=== PATIENT | male | born 2000 | race African-American/Black ===

== ENCOUNTER 2022-09-15 21:50 | Emergency (ER) | payer OTHER, SELFPAY ==
--- NOTE | 2022-09-15 21:55 | ED_ITS ---
HPI - Psych General Chief Complaint: Psychiatric Symptoms Stated Complaint: crisis, per ems Time Seen by Provider: 09/15/22 21:54 Source: patient Mode of arrival: EMS Limitations: no limitations History of Present Illness HPI Narrative: Patient's history of depression parents few years ago does not have any pl [place] to live came from [place] to live with his cousin sister stayed more than 10 days now he cannot stay in her house patient denied any SI but feels hopeless and depressed came here to live to find a job and a place but her cousin sister called the EMS as she did text saying that he is suicidal but patient denied no substance abuse no alcohol abuse Related Data Home Medications Medication Instructions Recorded Confirmed No Known Home Meds 09/15/22 09/15/22 Allergies Allergy/AdvReac Type Severity Reaction Status Date / Time No Known Allergies Allergy Verified 09/15/22 21:55 Review of Systems Review of Systems: Yes all other systems are reviewed and are negative [facility] Social History Social History Advance Directives: No Advance Directives Information Provided: No Healthcare Proxy: No Guardian: No Physical Exam Vital Signs: Vital Signs: Last Vital Signs Temp 99.3 F 09/16/22 03:53 Pulse 90 09/16/22 03:53 Resp 17 09/16/22 03:53 BP 126/59 L 09/16/22 03:53 Pulse Ox 99 09/16/22 03:53 O2 Del Method Room Air 09/16/22 03:53 BMI result Body Mass Index 27.8 Appearance: Alert. Oriented X3. No acute distress. Eyes: PERRLA, ENT: Pharynx normal. Oral Mucosa moist Neck: Normal inspection. Neck supple. CVS: Normal heart rate and rhythm. Pulses normal. Respiratory: No respiratory distress. Equal air entry bilateral, Abdomen: Soft and nontender. Bowel sounds are present, Skin: Skin warm and dry. Normal skin color. Normal skin turgor. Extremities: No lower extremity edema. No calf tenderness psych: Depressed denied any SI or HI no hallucination or delusion Neuro: Oriented X 3. No motor deficit. No sensory deficit.No cerebellar signs , cranial nerves II-XII intact Medications Administered Discontinued Medications Generic Name Dose Route Start Last Admin Trade Name Freq PRN Reason Stop Dose Admin Loperamide HCl 4 mg 09/16/22 03:49 09/16/22 03:58 Loperamide Hcl 2 Mg Capsule PO 09/16/22 03:50 4 mg ONCE ONE Administration Medical Decision Making Medical Decision Making MDM Narrative: Patient depression currently not suicidal but had thoughts in the past without any plan seen by care team will plan to place him in respite Lab Data MDM Lab Attestation statement: I reviewed the patient's lab results. 09/15/22 22:24 09/15/22 22:24 Labs: Lab Results 09/15/22 09/15/22 09/15/22 Range/Units 22:24 22:24 22:24 WBC 15.8 H (4.8-10.8) X10*3/uL RBC 5.44 (4.60-5.80) X10*6/uL Hgb 16.2 (14.0-18.0) g/dl Hct 48.3 (42.0-52.0) % MCV 88.8 (80.0-98.0) fL MCH 29.8 (27.0-33.0) pg MCHC 33.5 (31.0-36.0) g/dl RDW 12.4 (11.0-16.0) % Plt Count 334 (160-400) X10*3/uL MPV 10.4 (9.4-12.4) fL Immature Gran % (Auto) 0.3 (0.0-0.4) % Neut % (Auto) 79.8 H (45-73) % Lymph % (Auto) 11.4 L (20-40) % [place] % (Auto) 8.0 (2-11) % Eos % (Auto) 0.2 (0-4) % Baso % (Auto) 0.3 (0-2) % Lymph # (Auto) 1.8 (1.2-4.9) X10*3/uL [place] # (Auto) 1.3 H (0.1-1.2) X10*3/uL Eos # (Auto) 0.0 (0.0-0.4) X10*3/uL Baso # (Auto) 0.0 (0.0-0.2) X10*3/uL Abs Immat Gran (auto) 0.04 H (0.00-0.03) X10*3/uL Absolute Neuts (auto) 12.6 H (2.0-8.3) x10*3/uL Absolute Nucleated RBC 0.000 (0.0-0.012) X10*3/uL Nucleated RBC % (auto) 0.0 (0.0-0.2) /100WBC Sodium 139 (135-145) mmol/L Potassium 3.3 (3.3-5.1) mmol/L Chloride 102 (96-108) mmol/L Carbon Dioxide 26 (22-29) mmol/L Anion Gap 14 (12-20) BUN 7 L (9-16) mg/dL Creatinine 1.00 (0.5-1.4) mg/dL Estim Creat Clear Calc 129.3 Estimated GFR > 60 Random Glucose 102 (60-115) mg/dL Calcium 10.0 (8.4-10.2) mg/dL Total Bilirubin 0.6 (0.0-1.0) mg/dL AST 17 (5-37) U/L ALT 20 (0-40) U/L Alkaline Phosphatase 138 H (39-117) U/L Total Protein 8.1 H (6.5-8.0) g/dL Albumin 4.5 (3.5-5.0) g/dL Urine Opiates Screen (Not Detect) Urine Fentanyl Screen (Not Detect) Ur Barbiturates Screen (Not Detect) Ur Phencyclidine Scrn (Not Detect) Ur Amphetamines Screen (Not Detect) U Benzodiazepines Scrn (Not Detect) Urine Cocaine Screen (Not Detect) U Marijuana (THC) Screen (Not Detect) Ethyl Alcohol < 10 mg/dL COVID-19 (ADRIAN) (Negative) COVID-19 Clin Com 09/15/22 09/16/22 Range/Units 22:24 03:50 WBC (4.8-10.8) X10*3/uL RBC (4.60-5.80) X10*6/uL Hgb (14.0-18.0) g/dl Hct (42.0-52.0) % MCV (80.0-98.0) fL MCH (27.0-33.0) pg MCHC (31.0-36.0) g/dl RDW (11.0-16.0) % Plt Count (160-400) X10*3/uL MPV (9.4-12.4) fL Immature Gran % (Auto) (0.0-0.4) % Neut % (Auto) (45-73) % Lymph % (Auto) (20-40) % [place] % (Auto) (2-11) % Eos % (Auto) (0-4) % Baso % (Auto) (0-2) % Lymph # (Auto) (1.2-4.9) X10*3/uL [place] # (Auto) (0.1-1.2) X10*3/uL Eos # (Auto) (0.0-0.4) X10*3/uL Baso # (Auto) (0.0-0.2) X10*3/uL Abs Immat Gran (auto) (0.00-0.03) X10*3/uL Absolute Neuts (auto) (2.0-8.3) x10*3/uL Absolute Nucleated RBC (0.0-0.012) X10*3/uL Nucleated RBC % (auto) (0.0-0.2) /100WBC Sodium (135-145) mmol/L Potassium (3.3-5.1) mmol/L Chloride (96-108) mmol/L Carbon Dioxide (22-29) mmol/L Anion Gap (12-20) BUN (9-16) mg/dL Creatinine (0.5-1.4) mg/dL Estim Creat Clear Calc Estimated GFR Random Glucose (60-115) mg/dL Calcium (8.4-10.2) mg/dL Total Bilirubin (0.0-1.0) mg/dL AST (5-37) U/L ALT (0-40) U/L Alkaline Phosphatase (39-117) U/L Total Protein (6.5-8.0) g/dL Albumin (3.5-5.0) g/dL Urine Opiates Screen Not Detected (Not Detect) Urine Fentanyl Screen Not Detected (Not Detect) Ur Barbiturates Screen Not Detected (Not Detect) Ur Phencyclidine Scrn Not Detected (Not Detect) Ur Amphetamines Screen Not Detected (Not Detect) U Benzodiazepines Scrn Not Detected (Not Detect) Urine Cocaine Screen Not Detected (Not Detect) U Marijuana (THC) Screen POSITIVE H (Not Detect) Ethyl Alcohol mg/dL COVID-19 (ADRIAN) Negative (Negative) COVID-19 Clin Com See Note Discharge Plan Discharge Clinical Impression: Suicidal ideation, Depression Patient Disposition: Still a Patient Prescriptions: No Action No Known Home Meds Interventions: Dickinson-Suicide Risk Severity Scale Last Done: 09/16/22 00:27
[2022-09-15 21:57] VITALS: BP 152/86; PULSE 106; RESP 17; TEMP 37.1; O2SAT 99; BMI 27.8
[2022-09-15 22:33] LABS: MANUAL DIFF FLAG NO
[2022-09-15 22:35] LABS: Basophils Percent Auto 0.3 % (0-2); Eosinophils Percent Auto 0.2 % (0-4); Hematocrit 48.3 % (42.0-52.0); Hemoglobin 16.2 g/dl (14.0-18.0); Imm Gran Abs Auto 0.04 X10*3/uL (0.00-0.03); Imm Gran Pct Auto 0.3 % (0.0-0.4); Lymphocytes Absolute Auto 1.8 X10*3/uL (1.2-4.9); Lymphocytes Percent Auto 11.4 % (20-40); Mean Corpuscular HGB Conc 33.5 g/dl (31.0-36.0); Mean Corpuscular Hemoglobin 29.8 pg (27.0-33.0); Mean Corpuscular Volume 88.8 fL (80.0-98.0); Mean Platelet Volume 10.4 fL (9.4-12.4); Monocytes Absolute Auto 1.3 X10*3/uL (0.1-1.2); Neutrophils Absolute Auto 12.6 x10*3/uL (2.0-8.3); Neutrophils Percent Auto 79.8 % (45-73); Platelet Count 334 X10*3/uL (160-400); Red Blood Count 5.44 X10*6/uL (4.60-5.80); Red Cell Distribution Width 12.4 % (11.0-16.0); White Blood Count 15.8 X10*3/uL (4.8-10.8)
[2022-09-15 22:44] LABS: Amphetamine Screen Urine Not Detected (Not Detect); Barbiturates, Urine Not Detected (Not Detect); Benzodiazepines Screen Urine Not Detected (Not Detect); Cannabinoid Screen Urine POSITIVE (Not Detect); Cocaine Screen Urine Not Detected (Not Detect); Fentanyl, urine Not Detected (Not Detect); Opiate Screen Urine Not Detected (Not Detect); Phencyclidine Screen Urine Not Detected (Not Detect)
[2022-09-15 22:48] LABS: Alanine Aminotransferase 20 U/L (0-40); Albumin Level 4.5 g/dL (3.5-5.0); Alkaline Phosphatase 138 U/L (39-117); Anion Gap 14 (12-20); Aspartate Amino Transferase 17 U/L (5-37); Bilirubin Total 0.6 mg/dL (0.0-1.0); Blood Urea Nitrogen 7 mg/dL (9-16); Carbon Dioxide 26 mmol/L (22-29); Chloride 102 mmol/L (96-108); Creatinine Clr Calc Pharmacy 129.3; Estimated Glomerular Filt Rate > 60; Glucose Random 102 mg/dL (60-115); Potassium 3.3 mmol/L (3.3-5.1); Sodium 139 mmol/L (135-145); Total Protein 8.1 g/dL (6.5-8.0)
[2022-09-15 22:49] LABS: Ethanol < 10 mg/dL
[2022-09-16 03:53] VITALS: BP 126/59; PULSE 90; RESP 17; TEMP 37.4; O2SAT 99
[2022-09-16] MEDS: Loperamide HCl 2 MG CAPSULE 4 MG PO ×2 (03:58→18:09)
[2022-09-16 04:13] LABS: COVID-19 Test Negative (Negative); IDNOW Serial# BCCEAD1C
--- NOTE | 2022-09-16 06:25 | PC.NURSE ---
Patient slept intermittently, no distress observed/reported except diarrhea x2 Imodium 4 mg administered at 0358 with + effect, patient was assessed by care team disposition is respite bed search, med rec attempted/currently not on any home medication, VSS, behavior non concerning, will continue to monitor.
[2022-09-16 07:39] LABS: Appearance Urine Turbid; Color Urine Dark Yellow; Glucose Urine UA Negative (Negative); Leukocyte Esterase Urine Trace (Negative); Nitrite Urine Negative (Negative); Specific Gravity - Urine 1.025 (1.005-1.025); UMIC TRIGGER UACC YES; Urine Blood Negative (Negative); Urine Ketones 15 mg/dL (Negative); Urine Protein Trace mg/dL (Neg-Trace)
[2022-09-16 07:41] LABS: Bacteria Urine None Seen (None Seen); Hyaline Casts Urine 0-2 /LPF (0-2); RBC Urine 0-2 /HPF (0-2); Squamous Epithelial Cell Urine 0-2 /HPF (0-2); WBC Urine 0-5 /HPF (0-5)
--- NOTE | 2022-09-16 09:38 | PC.NURSE ---
Calm and cooperative. Patient placing calls to [facility] to temporary housing in the [facility].
--- NOTE | 2022-09-16 12:42 | PC.NURSE ---
Patient reports still having a small amount of diarrhea but that the loperimide help his stomach feel better.
--- NOTE | 2022-09-16 14:30 | PC.NURSE ---
stool sample sent to lab, awaiting results before transfer to respite.
[2022-09-16 15:02] LABS: Leukocytes Stool Qualitative NEGATIVE (NEGATIVE)
[2022-09-16 15:30] LABS: CDiff Gene PCR NEGATIVE (Negative)
--- NOTE | 2022-09-16 16:36 | PC.NURSE ---
pt resting comfortably, denies SI. awaiting stool sample results
[2022-09-16 16:59] VITALS: BP 126/62; PULSE 97; RESP 18; TEMP 36.9; O2SAT 100
[2022-09-16] MEDS: Simethicone 80 MG TAB.CHEW PO (18:09)
--- NOTE | 2022-09-16 18:11 | PC.NURSE ---
pt reporting stomach pain and cramping. PA order imodium for diarrhea and simethicone. medicated per may. pt resting
--- NOTE | 2022-09-16 18:12 | PC.NURSE ---
per CARE team [facility] will not be able to take pt until GI panel/c.diff lab has resulted, per lab this will not be until tomorrow
[2022-09-17 03:13] VITALS: BP 114/75; PULSE 91; RESP 17; O2SAT 96
--- NOTE | 2022-09-17 06:10 | PC.NURSE ---
Patient slept through the night, no distress observed/reported, patient currently not on any medication, no behavior concerns, disposition per care team is Respite bed search, Cdiff negative, VSS, labs completed/resulted, contracted for the safety, will continue to monitor.
--- NOTE | 2022-09-17 07:15 | PC.NURSE ---
seen by CARE team , plan is to go to respite bed today
--- NOTE | 2022-09-17 07:36 | PC.NURSE ---
pt showering. independent with steady gait.
[2022-09-17 07:41] LABS: Adenovirus F 40/41 Not Detected (Not Detect.); Astrovirus Not Detected (Not Detect.); Campylobacter Not Detected (Not Detect.); Cryptosporidium Not Detected (Not Detect.); Cyclospora cayetanensis Not Detected (Not Detect.); E. coli EAEC Not Detected (Not Detect.); E. coli EPEC Not Detected (Not Detect.); E. coli ETEC Not Detected (Not Detect.); E. coli STEC Not Detected (Not Detect.); Entamoeba histolytica Not Detected (Not Detect.); Giardia lamblia Not Detected (Not Detect.); Norovirus GI/GII Not Detected (Not Detect.); Plesiomonas shigelloides Not Detected (Not Detect.); Rotavirus A Not Detected (Not Detect.); Sapovirus Not Detected (Not Detect.); Shigella sp./EIEC Not Detected (Not Detect.); Vibrio Not Detected (Not Detect.); Vibrio Cholerae Not Detected (Not Detect.); Yersinia enterocolitica Not Detected (Not Detect.)
--- NOTE | 2022-09-17 07:41 | PC.NURSE ---
critical lab call - pt (+) for salmonella. Dr Fernandes informed. awaiting orders.
[2022-09-17 07:43] LABS: Salmonella Detected (Not Detect.)
--- NOTE | 2022-09-17 10:55 | PC.NURSE ---
pt to go to respite care this afternoon. Sleeping in NAD. Report to DEX Leonard
--- NOTE | 2022-09-17 11:41 | PC.NURSE ---
report taken from jade wolfe pt has been sleeping in bed, allowing for rest at this time. rr even unlabored in bed. wctm for dc needs.
--- NOTE | 2022-09-17 13:00 | PC.NURSE ---
pt cousin zackery called for update, pt does not want cousin or family updated about pt status. pt is calm cooperative on first contact, eating and tolerating po without issue. denies abd pain at this time. awaiting respite placement, per notes. steady gait.
--- NOTE | 2022-09-17 14:30 | MHC.CARE ---
CARE Team has had no success in respite placement for this individual.? An MSU was conducted earlier today, during the assessment pt reported no SI, HI, , AVH or self-harm urges.? Pt reports no depression and improved anxiety.? As stated in the MSU, pt?s presentation appears to be in the context of his recent loss of housing.? Given that pt is denying Si, he appears to be at low risk for intentional self-harm.? The plan is for pt to be discharged.? This plan has been discussed with and agreed upon by CARE Clinical Program Manager Maxi HERNANDEZ, ED provider Dr Fernandes, and pt?s nurse DEX Briones. Pt is from the [facility] and most of his family supports are in that area. CARE Team has secured consent from [employer] of Behavioral Health Skylar HERNANDEZ to Lyft pt to the [place] train station.? Pt will be staying at his half-brother?s home.?
== END 2022-09-17 15:42 | disposition home or self-care (01) ==
PROVIDERS: Physician Assistant; Emergency Provider Internal Medicine
DX: R45.851 Suicidal ideations (principal); F32.A Depression, unspecified; A02.9 Salmonella infection, unspecified; Z20.822 Contact with and (suspected) exposure to COVID-19; Z72.89 Other problems related to lifestyle; Z59.01 Sheltered homelessness
CPT/HCPCS: 36415; 80053; 80307; 81001; 85025; 87493; 87507; 87635; 89055; 99284; 99285; S9485